=== PATIENT | male | born 1960 | race Caucasian/White ===

== ENCOUNTER 2018-08-16 14:06 | Inpatient (IN) | payer OTHER ==
[~2018-08-16] VITALS: Ht 175.3 cm; Wt 97.1 kg
[~2018-08-16 14:06] MED LIST: CIPRO500 MG PO; PERCOCET 5-3251 EACH PO; PERCOCET 5/3251 TAB PO; URIN D.S. TABL1 EACH PO
[2018-08-20] MEDS ORDERED: ENALAPRIL MALEAT5 MG PO (13:01)
[2018-08-20] MEDS ORDERED: Coreg 3.125MG TABLET PO (13:01)
[2018-08-20] MEDS ORDERED: ISOSORBIDE MONO30 MG PO (13:01)
[2018-08-20] MEDS ORDERED: ASA-EC81 MG PO (13:02)
[2018-08-20] MEDS ORDERED: FAMOTIDINE20 MG PO (13:02)
== END 2018-08-20 16:10 | disposition home or self-care (01) | DRG 292 ==
LOC: ER 14:06 → MEDI 21:44
PROC: BW40ZZZ Ultrasonography of Abdomen (ICD-10-PCS; principal; 2018-08-16)
PROC: B246ZZZ Ultrasonography of Right and Left Heart (ICD-10-PCS; 2018-08-16)
PROC: 4A033R1 Measurement of Arterial Saturation, Peripheral, Percutaneous Approach (ICD-10-PCS; 2018-08-16)
PROC: 0BH17EZ Insertion of Endotracheal Airway into Trachea, Via Natural or Artificial Opening (ICD-10-PCS; 2018-08-17)
PROC: 5A1945Z Respiratory Ventilation, 24-96 Consecutive Hours (ICD-10-PCS; 2018-08-17)
DX: I50.43 Acute on chronic combined systolic (congestive) and diastolic (congestive) heart failure (principal); J44.1 Chronic obstructive pulmonary disease with (acute) exacerbation; I42.8 Other cardiomyopathies; N20.2 Calculus of kidney with calculus of ureter; K29.00 Acute gastritis without bleeding; B96.29 Other Escherichia coli [E. coli] as the cause of diseases classified elsewhere; F17.218 Nicotine dependence, cigarettes, with other nicotine-induced disorders; D69.49 Other primary thrombocytopenia; Z95.0 Presence of cardiac pacemaker

== ENCOUNTER 2019-03-18 14:42 | Emergency (ER) | payer OTHER ==
[~2019-03-18] VITALS: Ht 175.3 cm; Wt 97.1 kg
[~2019-03-18 14:42] MED LIST changes: +ASA-EC81 MG PO; +Coreg 3.125MG TABLET PO; +ENALAPRIL MALEAT5 MG PO; +FAMOTIDINE20 MG PO; +ISOSORBIDE MONO30 MG PO
[2019-03-18] MEDS ORDERED: DIOVAN40 MG (15:44)
[2019-03-18] MEDS ORDERED: LIPITOR20 MG (15:44)
[2019-03-18] MEDS ORDERED: CARVEDILOL3.125 MG (15:44)
[2019-03-18] MEDS ORDERED: FOLIC ACID0.8 M1 (15:44)
== END 2019-03-18 22:35 | disposition home or self-care (01) ==
LOC: ER 14:42
DX: K29.70 Gastritis, unspecified, without bleeding (principal)

== ENCOUNTER 2019-04-12 01:18 | Emergency (ER) | payer OTHER ==
[~2019-04-12] VITALS: Ht 175.3 cm; Wt 95.3 kg
[~2019-04-12 01:18] MED LIST changes: +CARVEDILOL3.125 MG; +DIOVAN40 MG; +FOLIC ACID0.8 M1; +LIPITOR20 MG
== END 2019-04-12 14:09 | disposition home or self-care (01) ==
LOC: ER 01:18
DX: R51 Headache (principal); K13.79 Other lesions of oral mucosa